=== PATIENT | female | born 1965 | race Caucasian/White ===

== ENCOUNTER 2017-09-15 12:37 | Day surgery (SDC) | payer OTHER ==
[~2017-09-15] VITALS: Ht 152.4 cm; Wt 51.0 kg
[2017-09-15] MEDS ORDERED: [UNRECOGNIZED DRUG - OTHER] (13:53)
[2017-09-15] MEDS ORDERED: [UNRECOGNIZED DRUG - CODE] PO (13:53)
[2017-09-15] MEDS ORDERED: VIT D (13:53)
[2017-09-15] MEDS ORDERED: FISH OIL (13:53)
[2017-09-15 14:04] VITALS: BP 137/63; PULSE 77; RESP 21
[2017-09-15] MEDS ORDERED: FENTAnyl 50 MCG/ML VIAL ONE (14:59)
[2017-09-15] MEDS ORDERED: MIDAZOLAM 1 MG/ML 2 ML INJ ONE ×2 (14:59)
[2017-09-15] MEDS ORDERED: MEPERIDINE 50 MG INJ ONE (15:00)
--- NOTE | 2017-09-15 15:03 | OPPN ---
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 Operative Report Preoperative Diagnosis Rectal pain rectal bleeding Postoperative Diagnosis Anal spasm with external hemorrhoid and possible anal fistula Proctitis Tortuous: Left and right colon Operation/Procedure Performed Colonoscopy biopsy Surgeon see signature line clinical education assistant None Anesthesia: moderate sedation (Versed 3 mg fentanyl 75 mcg Demerol 50 mg total moderate sedation time 30 minutes) Estimated blood loss: none Transfusion Required none Specimen Rectal biopsy to rule out proctitis colitis Grafts/Implants none Complications none AZRA GARCIA MD Sep 15, 2017 15:03
--- NOTE | 2017-09-15 15:03 | OPPN ---
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 Operative Report Preoperative Diagnosis Rectal pain rectal bleeding Postoperative Diagnosis Anal spasm with external hemorrhoid and possible anal fistula Proctitis Tortuous: Left and right colon Operation/Procedure Performed Colonoscopy biopsy Surgeon see signature line general office assistant None Anesthesia: moderate sedation (Versed 3 mg fentanyl 75 mcg Demerol 50 mg total moderate sedation time 30 minutes) Estimated blood loss: none Transfusion Required none Specimen Rectal biopsy to rule out proctitis colitis Grafts/Implants none Complications none AZRA GARCIA MD Sep 15, 2017 15:03
--- NOTE | 2017-09-15 15:03 | OPPN ---
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 Operative Report Preoperative Diagnosis Rectal pain rectal bleeding Postoperative Diagnosis Anal spasm with external hemorrhoid and possible anal fistula Proctitis Tortuous: Left and right colon Operation/Procedure Performed Colonoscopy biopsy Surgeon see signature line cosmetic sales assistant None Anesthesia: moderate sedation (Versed 3 mg fentanyl 75 mcg Demerol 50 mg total moderate sedation time 30 minutes) Estimated blood loss: none Transfusion Required none Specimen Rectal biopsy to rule out proctitis colitis Grafts/Implants none Complications none AZRA GARCIA MD Sep 15, 2017 15:03
[2017-09-15 15:08] VITALS: BP 99/65; RESP 20
--- NOTE | 2017-09-16 17:47 | GILP ---
DATE OF PROCEDURE: 09/15/2017 PREOPERATIVE DIAGNOSES: 1. Rectal bleeding. 2. Rectal pain. PROCEDURE DONE: Colonoscopy and biopsy done. POSTOPERATIVE DIAGNOSES: 1. Anal sphincteric spasm, quite severe, in spite of Xylocaine application to the anus. 2. Possible anal fistula. 3. External hemorrhoid. 4. Ulcerative proctitis. 5. Tortuous colon. DESCRIPTION OF PROCEDURE: The patient was put in left lateral decubitus after obtaining informed consent. The patient was very anxious, gave her initially 2 mg of Versed and 50 mcg of fentanyl, and the rectal area was examined with Xylocaine application because of her rectal pain. She was in anal spasm. There was evidence of possibly external hemorrhoid, questionable anal fistula, but unable to expand the anus due to spasm with the scope. I could not take a good picture. The then was advanced further because of tortuosity. Another 1 mg of Versed and another 25 mcg of fentanyl and 50 mg of Demerol given during the procedure. The scope was advanced all the way to cecum. 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 This was photographed and biopsies were done. Retroflexion also done. After biopsies, the scope was withdrawn. RECOMMENDATION: Suppositories will be started after the biopsy report. Meanwhile, Anusol, hydrocortisone suppositories b.i.d. and advised her to apply anal Proctocort or Nupercaine . If the pain continues in the rectum, she needs to be seen by a shake backboard notcher. Dictated By: AZRA CANTU Conf#: [id number] DID#: [id number] CC: Roland Lowery;*EndCC* MTDD
--- NOTE | 2017-09-16 17:47 | GILP ---
DATE OF PROCEDURE: 09/15/2017 PREOPERATIVE DIAGNOSES: 1. Rectal bleeding. 2. Rectal pain. PROCEDURE DONE: Colonoscopy and biopsy done. POSTOPERATIVE DIAGNOSES: 1. Anal sphincteric spasm, quite severe, in spite of Xylocaine application to the anus. 2. Possible anal fistula. 3. External hemorrhoid. 4. Ulcerative proctitis. 5. Tortuous colon. DESCRIPTION OF PROCEDURE: The patient was put in left lateral decubitus after obtaining informed consent. The patient was very anxious, gave her initially 2 mg of Versed and 50 mcg of fentanyl, and the rectal area was examined with Xylocaine application because of her rectal pain. She was in anal spasm. There was evidence of possibly external hemorrhoid, questionable anal fistula, but unable to expand the anus due to spasm with the scope. I could not take a good picture. The then was advanced further because of tortuosity. Another 1 mg of Versed and another 25 mcg of fentanyl and 50 mg of Demerol given during the procedure. The scope was advanced all the way to cecum. 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 This was photographed and biopsies were done. Retroflexion also done. After biopsies, the scope was withdrawn. RECOMMENDATION: Suppositories will be started after the biopsy report. Meanwhile, Anusol, hydrocortisone suppositories b.i.d. and advised her to apply anal Proctocort or Nupercaine . If the pain continues in the rectum, she needs to be seen by a freight separator. Dictated By: AZRA CANTU Conf#: [id number] DID#: [id number] CC: Roland Lowery;*EndCC* MTDD
--- NOTE | 2017-09-16 17:47 | GILP ---
DATE OF PROCEDURE: 09/15/2017 PREOPERATIVE DIAGNOSES: 1. Rectal bleeding. 2. Rectal pain. PROCEDURE DONE: Colonoscopy and biopsy done. POSTOPERATIVE DIAGNOSES: 1. Anal sphincteric spasm, quite severe, in spite of Xylocaine application to the anus. 2. Possible anal fistula. 3. External hemorrhoid. 4. Ulcerative proctitis. 5. Tortuous colon. DESCRIPTION OF PROCEDURE: The patient was put in left lateral decubitus after obtaining informed consent. The patient was very anxious, gave her initially 2 mg of Versed and 50 mcg of fentanyl, and the rectal area was examined with Xylocaine application because of her rectal pain. She was in anal spasm. There was evidence of possibly external hemorrhoid, questionable anal fistula, but unable to expand the anus due to spasm with the scope. I could not take a good picture. The then was advanced further because of tortuosity. Another 1 mg of Versed and another 25 mcg of fentanyl and 50 mg of Demerol given during the procedure. The scope was advanced all the way to cecum. 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 This was photographed and biopsies were done. Retroflexion also done. After biopsies, the scope was withdrawn. RECOMMENDATION: Suppositories will be started after the biopsy report. Meanwhile, Anusol, hydrocortisone suppositories b.i.d. and advised her to apply anal Proctocort or Nupercaine . If the pain continues in the rectum, she needs to be seen by a guidance consultant. Dictated By: AZRA CANTU Conf#: [id number] DID#: [id number] CC: Roland Lowery;*EndCC* MTDD
== END 2017-09-15 21:01 | disposition home or self-care (01) ==
LOC: GIL 12:37
PROVIDERS: ATTEND Internal Medicine
DX: K52.9 Noninfective gastroenteritis and colitis, unspecified (principal); K64.4 Residual hemorrhoidal skin tags; K51.20 Ulcerative (chronic) proctitis without complications; K59.4 Anal spasm
CPT/HCPCS: 45380; 88305; J2175; J2250; J3010; Z7610